=== PATIENT | female | born 2000 | race Two or more races ===

== ENCOUNTER 2021-06-18 14:11 | Emergency (ER) | payer OTHER ==
[~2021-06-18] VITALS: Ht 162.6 cm; Wt 59.0 kg
[2021-06-18] MEDS ORDERED: LIDOCAINE 1% HCL (LOCAL ANESTH.) INJ 20ML MDV ONE (14:34)
[2021-06-18 14:35] VITALS: BP 87/50
[2021-06-18] MEDS ORDERED: LIDOCAINE 1% HCL (LOCAL ANESTH.) INJ 20ML MDV IJ ONE (14:45)
[2021-06-18] MEDS ORDERED: cefTRIAXone SOD 1,000 MG VL IM ONE (15:00)
== END 2021-06-18 15:55 | disposition home or self-care (01) ==
LOC: ER 14:11
DX: S51.811A Laceration without foreign body of right forearm, initial encounter (principal); S50.11XA Contusion of right forearm, initial encounter; F12.10 Cannabis abuse, uncomplicated; W54.0XXA Bitten by dog, initial encounter; Y93.89 Activity, other specified; Y92.89 Other specified places as the place of occurrence of the external cause; Y99.8 Other external cause status
CPT/HCPCS: 12004; 73090; 96372; 99283; J0696; J2001

== ENCOUNTER 2021-06-19 15:44 | Emergency (ER) | payer SELFPAY ==
[~2021-06-19] VITALS: Ht 162.6 cm; Wt 61.2 kg
[2021-06-19 16:49] VITALS: BP 130/89
== END 2021-06-19 16:55 | disposition home or self-care (01) ==
LOC: ER 15:44
DX: S51.811D Laceration without foreign body of right forearm, subsequent encounter (principal); F12.10 Cannabis abuse, uncomplicated; X58.XXXD Exposure to other specified factors, subsequent encounter